=== PATIENT | male | born 1950 | race Caucasian/White ===

== ENCOUNTER → 2018-05-07 | Outpatient (CLI) | payer OTHER ==
[~2018-05-07] MED LIST: DIATRIZOATE MEGL/DIATRIZOA SOD 30 ML BTL PO ONE; IOPAMIDOL 370 MG/ML 200 ML INFUS..BTL INJ ONE; SODIUM CHLORIDE 0.9% 250ML 250 ML ONE; SODIUM CHLORIDE 0.9% 500ML 500 ML ONE; SODIUM CHLORIDE 0.9% 50ML 50 ML ONE
[2018-05-07 17:10] LABS: CREATININE, SERUM 1.51 mg/dL (0.72-1.25)
--- NOTE | 2018-05-07 18:52 | Diagnostic Imaging Report ---
EXAMINATION: CT of the abdomen and pelvis with contrast. TECHNIQUE: Spiral CT images of the abdomen and pelvis were performed from the lung bases to the lesser trochanters after the intravenous administration of 100 cc of Isovue 370 and the oral administration of dilute Gastrografin. Coronal and sagittal reformatted images were obtained. COMPARISON: None. CLINICAL HISTORY:Lower quadrant abdominal pain DISCUSSION: ABDOMEN/PELVIS: LOWER THORAX:5 mm calcified granuloma in the right lower lobe (series 2, image 16). 5 mm calcified granuloma in the right middle lobe (series 2, image 7). 5 mm calcified granuloma in the medial lingula (series 2, image 2). 5-6 mm calcified granuloma in the left lower lobe (series 2, image 11). Calcified para esophageal lymph nodes. HEPATOBILIARY: Normal hepatic contour. Scattered punctate calcified granulomata in both hepatic lobes. No focal hepatic lesions. No intra or extrahepatic biliary ductal dilation. GALLBLADDER: No radio-opaque stones or sludge. No wall thickening. SPLEEN: No splenomegaly. Multiple calcified granulomata PANCREAS: No focal masses or ductal dilatation. ADRENALS: No adrenal nodules. KIDNEYS/URETERS: Punctate nonobstructing calculi in the superior to mid right kidney (series 2, images 35 and 36). No other renal or any ureteral calculi, hydronephrosis or obstruction. Symmetrical renal enhancement. No cystic or solid enhancing lesions. PELVIC ORGANS/BLADDER: Bladder is unremarkable. Dystrophic calcifications in the prostate. PERITONEUM/RETROPERITONEUM: No free air or fluid. LYMPH NODES: No intra-abdominal, retroperitoneal, pelvic or inguinal lymphadenopathy. VESSELS: The celiac trunk,superior and inferior mesenteric and bilateral renal arteries are patent The portal, superior mesenteric and splenic veins are patent. Atherosclerotic calcification of the abdominal aorta and proximal iliac vessels. GI TRACT: Distal descending and sigmoid diverticulosis. Approximately 6 cm segment of the proximal sigmoid colon which shows moderate wall thickening and moderate surrounding inflammatory changes (series 2, image 76 and coronal image 15).. No foci of extraluminal air or adjacent well-defined enhancing fluid collections. Rest of the bowel shows no dilation or obstruction. Stomach is unremarkable. BONES AND SOFT TISSUE: No aggressive lytic lesions. Degenerative disc changes in the lower thoracic and lumbar sacral spine, predominantly L5-S1. No soft tissue abnormalities. IMPRESSION: 1. Findings consistent with acute sigmoid diverticulitis in the appropriate clinical setting. No evidence of perforation or adjacent abscess formation. No bowel obstruction. 2. Prior granulomatous disease. 3. Findings discussed with Dr. Araiza May 07, 2018 at 1842 hours Signed by: Dr. Kian Arias M.D. on 05/07/2018 6:49 PM
== END ==
LOC: CT 15:57
PROVIDERS: ATTEND Internal Medicine Gastroenterology
DX: R10.32 Left lower quadrant pain (principal)
CPT/HCPCS: 36415; 74177; 82565; 84520; J7040; J7050; Q9967

== ENCOUNTER 2020-01-06 12:45 | Observation (INO) | payer OTHER ==
[~2020-01-06] VITALS: Ht 175.3 cm; Wt 99.8 kg
--- OUTSIDE RECORDS SUMMARY | 2020-01-06 12:48 | XMS REPORT ---
Author Author [facility] Organization [facility] Address Unknown Phone Unavailable Care Team Providers Care Tablet Coater Name Role Phone YOLI ARAIZA Unavailable Unavailable Problems This patient has no known problems. Allergies, Adverse Reactions, Alerts This patient has no known allergies or adverse reactions. Medications This patient has no known medications. Results Test Description Test Time Test Comments Text Results Atomic Results Result Comments CT ABDOMEN/PELVIS W 2018-05-07 18:39:00 [place] [address] Patient Name: PANKAJ RONDON J MR #: [id number] : 1950 Age/Sex: 67/M Req #: [id number] Adm Physician: Ordered by: YOLI ARAIZA MD Report #: [id number] Location: CT Room/Bed: Procedure: [id number] CT/CT ABDOMEN/PELVIS W Exam Date: Exam Time: REPORT STATUS: Signed EXAMINATION: CT of the abdomen and pelvis with contrast. TECHNIQUE: Spiral CT images of the abdomen and pelvis were performed from the lung bases to the lesser trochanters after the intravenous administration of 100 cc of Isovue 370 and the oral administration of dilute Gastrografin. Coronal and sagittal reformatted images were obtained. COMPARISON: None. CLINICAL HISTORY:Lower quadrant abdominal pain DISCUSSION: ABDOMEN/PELVIS: LOWER THORAX:5 mm calcified granuloma in the right lower lobe (series 2, image 16). 5 mm calcified granuloma in the right middle lobe (series 2, image 7). 5 mm calcified granuloma in the medial lingula (series 2, image 2). 5-6 mm calcified granuloma in the left lower lobe (series 2, image 11). Calcified para esophageal lymph nodes. HEPATOBILIARY: Normal hepatic contour. Scattered punctate calcified granulomata in both hepatic lobes. No focal hepatic lesions. No intra or extrahepatic biliary ductal dilation. GALLBLADDER: No radio-opaque stones or sludge. No wall thickening. SPLEEN: No splenomegaly. Multiple calcified granulomata PANCREAS: No focal masses or ductal dilatation. ADRENALS: No adrenal nodules. KIDNEYS/URETERS: Punctate nonobstructing calculi in the superior to mid right kidney (series 2, images 35 and 36). No other renal or any ureteral calculi, hydronephrosis or obstruction. Symmetrical renal enhancement. No cystic or solid enhancing lesions. PELVIC ORGANS/BLADDER: Bladder is unremarkable. Dystrophic calcifications in the prostate. PERITONEUM/RETROPERITONEUM: No free air or fluid. LYMPH NODES: No intra-abdominal, retroperitoneal, pelvic or inguinal lymphadenopathy. VESSELS: The celiac trunk,superior and inferior mesenteric and bilateral renal arteries are patent The portal, superior mesenteric and splenic veins are patent. Atherosclerotic calcification of the abdominal aorta and proximal iliac vessels. GI TRACT: Distal descending and sigmoid diverticulosis. Approximately 6 cm segment of the proximal sigmoid colon which shows moderate wall thickening and moderate surrounding inflammatory changes (series 2, image 76 and coronal image 15).. No foci of extraluminal air or adjacent well-defined enhancing fluid collections. Rest of the bowel shows no dilation or obstruction. Stomach is unremarkable. BONES AND SOFT TISSUE: No aggressive lytic lesions. Degenerative disc changes in the lower thoracic and lumbar sacral spine, predominantly L5-S1. No soft tissue abnormalities. IMPRESSION: 1. Findings consistent with acute sigmoid diverticulitis in the appropriate clinical setting. No evidence of perforation or adjacent abscess formation. No bowel obstruction. 2. Prior granulomatous disease. 3. Findings discussed with Dr. Araiza May 07, 2018 at 1842 hours Signed by: Dr. Dusty Arias M.D. on 05/07/2018 6:49 PM Dictated By: DUSTY ARIAS MD 48 Transcribed By: NAZANIN on 05/07/181848 COPY TO: YOLI ARAIZA MD
[2020-01-06] MEDS ORDERED: PANTOPRAZOLE 40 MG 10ML VIAL IV STA (12:54)
[2020-01-06] MEDS ORDERED: SODIUM CHLORIDE 0.9% 1000ML 1,000 ML IV SCH (14:15)
[2020-01-06 14:23] LABS: BASOPHILS # (AUTO) 0.1 (0.0-0.1); BASOPHILS % 1.1 % (0.0-1.0); EOSINOPHILS # (AUTO) 0.3 (0.0-0.4); EOSINOPHILS % 4.4 % (0.0-6.0); HEMATOCRIT 44.5 % (38.2-49.6); HEMOGLOBIN 14.6 g/dL (14.0-18.0); LYMPHOCYTES # (AUTO) 1.3 (1.0-3.2); LYMPHOCYTES % 17.8 % (18.0-39.1); MEAN CORPUSCULAR HEMOGLOBIN 29.9 pg (28-32); MEAN CORPUSCULAR HGB CONC 32.8 g/dL (31-35); MEAN CORPUSCULAR VOLUME 91.2 fL (81-99); MONOCYTES # (AUTO) 0.6 (0.2-0.8); MONOCYTES % 8.3 % (4.4-11.3); NEUTROPHILS % 67.9 % (38.7-80.0); PLATELET COUNT 250 x10e3/uL (140-360); RED BLOOD COUNT 4.88 x10e6/uL (4.3-5.7); RED CELL DISTRIBUTION WIDTH 12.7 % (11.7-14.4)
[2020-01-06 14:42] LABS: ALBUMIN 3.8 g/dL (3.5-5.0); ALBUMIN/GLOBULIN RATIO 1.5 (0.8-2.0); ANION GAP 11.3 mmol/L (8-16); CALCIUM 9.5 mg/dL (8.4-10.2); CREATININE, SERUM 1.23 mg/dL (0.72-1.25); POTASSIUM 4.3 mmol/L (3.5-5.1)
[2020-01-06 14:52] LABS: CREATINE KINASE MB 5.7 ng/mL (0-5.0)
--- NOTE | 2020-01-06 14:59 | NUR ---
RECEIVED REPORT FROM ER FOR PT GOING TO ROOM 202.
[2020-01-06 15:20] VITALS: BP 132/88
[2020-01-06 15:20] LABS: INR 1.03; PROTHROMBIN TIME 14.1 seconds (11.9-14.5)
[2020-01-06 15:21] LABS: PARTIAL THROMBOPLASTIN TIME 29.7 seconds (23.8-35.5)
--- NOTE | 2020-01-06 15:33 | Diagnostic Imaging Report ---
X-ray chest AP portable History: Lower GI bleed Findings: Central airways unremarkable. Heart size borderline normal. Aorta atherosclerotic. Calcified left AP window lymph node. No pleural effusion. No pneumothorax. Lung underwood are unremarkable for a tiny calcified granuloma in the left midlung zone. Visualized skeletal structures show degenerative changes. Upper abdomen unremarkable. Impression: No acute cardiopulmonary disease. Signed by: Louie Oliva MD on 01/06/2020 3:29 PM
[2020-01-06] MEDS ORDERED: PRAVACHOL40 MG PO (15:42)
[2020-01-06] MEDS ORDERED: DEXILANT60 MG PO (15:42)
[2020-01-06] MEDS ORDERED: coq10 PO (15:42)
[2020-01-06] MEDS ORDERED: ARIMIDEX1 MG PO (15:42)
[2020-01-06] MEDS ORDERED: ASPIRIN81 MG PO (15:42)
[2020-01-06] MEDS ORDERED: MULTAQ 400MG T400 MG PO (15:42)
[2020-01-06] MEDS ORDERED: MULTIVITAMINS1 EAC7 PO (15:42)
[2020-01-06] MEDS ORDERED: VITAMIN B-121000 MC1 PO (15:42)
[2020-01-06] MEDS ORDERED: LEVOTHYROXINE112 MCG PO (15:42)
[2020-01-06] MEDS ORDERED: ZOLPIDEM PO (15:42)
[2020-01-06] MEDS ORDERED: XARELTO20 MG PO (15:42)
[2020-01-06] MEDS ORDERED: REVATIO20 MG PO (15:42)
[2020-01-06] MEDS ORDERED: LINZESS290 MCG PO (15:42)
[2020-01-06] MEDS ORDERED: vitamin d3 PO (15:42)
[2020-01-06] MEDS ORDERED: LISINOPRIL-HCT1 EACH PO (15:42)
[2020-01-06 15:57] VITALS: BP 135/83
[2020-01-06 16:15] VITALS: BP 135/83
[2020-01-06 18:47] LABS: BASOPHILS # (AUTO) 0.1 (0.0-0.1); BASOPHILS % 0.9 % (0.0-1.0); EOSINOPHILS # (AUTO) 0.3 (0.0-0.4); EOSINOPHILS % 4.4 % (0.0-6.0); HEMATOCRIT 44.5 % (38.2-49.6); HEMOGLOBIN 14.5 g/dL (14.0-18.0); LYMPHOCYTES # (AUTO) 1.6 (1.0-3.2); MEAN CORPUSCULAR HEMOGLOBIN 29.3 pg (28-32); MEAN CORPUSCULAR HGB CONC 32.6 g/dL (31-35); MEAN CORPUSCULAR VOLUME 89.9 fL (81-99); MONOCYTES # (AUTO) 0.6 (0.2-0.8); MONOCYTES % 8.2 % (4.4-11.3); NEUTROPHILS # (AUTO) 5.1 (2.1-6.9); NEUTROPHILS % 66.1 % (38.7-80.0); PLATELET COUNT 249 x10e3/uL (140-360); RED BLOOD COUNT 4.95 x10e6/uL (4.3-5.7); RED CELL DISTRIBUTION WIDTH 12.9 % (11.7-14.4)
--- NOTE | 2020-01-06 19:45 | NUR ---
BEDSIDE SHIFT REPORT GIVEN TO PM NURSE. PT AWAKE, ALERT, ORIENTED X3, NO SIGNS OF DISTRESS, NO COMPLAINTS AT THIS TIME. ALL SAFETY MEASURES IN PLACE.
[2020-01-06 20:00] VITALS: BP 133/58
[2020-01-06] MEDS: PANTOPRAZOLE 40 MG 10ML VIAL IV SCH (21:43)
[2020-01-06 21:47] VITALS: BP 133/85
[2020-01-07] VITALS: BP 122/64
[2020-01-07 04:00] VITALS: BP 111/59
[2020-01-07 06:22] LABS: BASOPHILS # (AUTO) 0.1 (0.0-0.1); BASOPHILS % 0.9 % (0.0-1.0); EOSINOPHILS # (AUTO) 0.4 (0.0-0.4); EOSINOPHILS % 5.6 % (0.0-6.0); HEMATOCRIT 41.5 % (38.2-49.6); HEMOGLOBIN 13.3 g/dL (14.0-18.0); LYMPHOCYTES # (AUTO) 1.2 (1.0-3.2); LYMPHOCYTES % 17.8 % (18.0-39.1); MEAN CORPUSCULAR HEMOGLOBIN 29.5 pg (28-32); MONOCYTES # (AUTO) 0.6 (0.2-0.8); NEUTROPHILS # (AUTO) 4.4 (2.1-6.9); NEUTROPHILS % 66.1 % (38.7-80.0); PLATELET COUNT 211 x10e3/uL (140-360); RED BLOOD COUNT 4.51 x10e6/uL (4.3-5.7); RED CELL DISTRIBUTION WIDTH 12.7 % (11.7-14.4)
--- NOTE | 2020-01-07 06:36 | NUR ---
patient is resting comfortably in the bed. bed is in the lowest position and call light is within reach.
--- NOTE | 2020-01-07 06:39 | NUR ---
consulted physician has seen patient this morning and states patient is ok to go home from his standpoint if his blood count stays the same.
[2020-01-07 06:47] LABS: CREATINE KINASE MB 2.9 ng/mL (0-5.0)
[2020-01-07 07:22] LABS: ALBUMIN 3.1 g/dL (3.5-5.0); ALBUMIN/GLOBULIN RATIO 1.3 (0.8-2.0); ANION GAP 12.4 mmol/L (8-16); CALCIUM 8.7 mg/dL (8.4-10.2); CREATININE, SERUM 1.24 mg/dL (0.72-1.25); POTASSIUM 4.4 mmol/L (3.5-5.1)
[2020-01-07 08:31] VITALS: BP 125/71
[2020-01-07] MEDS: PANTOPRAZOLE 40 MG 10ML VIAL IV SCH (08:39)
[2020-01-07 09:05] VITALS: BP 125/71
[2020-01-07 11:54] LABS: BASOPHILS # (AUTO) 0.1 (0.0-0.1); BASOPHILS % 1.1 % (0.0-1.0); EOSINOPHILS # (AUTO) 0.3 (0.0-0.4); HEMATOCRIT 42.4 % (38.2-49.6); HEMOGLOBIN 13.8 g/dL (14.0-18.0); LYMPHOCYTES # (AUTO) 1.2 (1.0-3.2); MEAN CORPUSCULAR HEMOGLOBIN 29.2 pg (28-32); MEAN CORPUSCULAR HGB CONC 32.5 g/dL (31-35); MEAN CORPUSCULAR VOLUME 89.6 fL (81-99); MONOCYTES # (AUTO) 0.5 (0.2-0.8); MONOCYTES % 8.4 % (4.4-11.3); NEUTROPHILS # (AUTO) 4.1 (2.1-6.9); PLATELET COUNT 223 x10e3/uL (140-360); RED BLOOD COUNT 4.73 x10e6/uL (4.3-5.7); RED CELL DISTRIBUTION WIDTH 12.7 % (11.7-14.4)
[2020-01-07 12:03] VITALS: BP 138/78
[2020-01-07 16:31] VITALS: BP 118/61
[2020-01-07] MEDS ORDERED: RIVAROXABAN 20 MG TABLET PO SCH (17:00)
[2020-01-07] MEDS ORDERED: SIMVASTATIN 20 MG TAB PO SCH (21:00)
[2020-01-07] MEDS ORDERED: ZOLPIDEM 12.5 MG PO SCH (21:00)
[2020-01-08] MEDS ORDERED: LEVOTHYROXINE SODIUM 112 MCG TAB PO SCH (06:00)
[2020-01-08] MEDS ORDERED: PANTOPRAZOLE SOD 40 MG TABEC PO SCH (07:30)
[2020-01-08] MEDS ORDERED: ASPIRIN 81 MG CHEW TAB PO SCH (09:00)
[2020-01-08] MEDS ORDERED: HYDROCHLOROTHIAZIDE 25 MG TAB PO SCH (09:00)
[2020-01-08] MEDS ORDERED: LINACLOTIDE 145 MCG CAPSULE PO SCH (09:00)
[2020-01-08] MEDS ORDERED: LISINOPRIL 20 MG TAB PO SCH (09:00)
[2020-01-08] MEDS ORDERED: DRONEDARONE 400 MG TAB PO SCH (09:00)
--- NOTE | 2020-01-08 20:47 | Consultation ---
DATE OF CONSULTATION: 01/07/2020 HISTORY OF PRESENT ILLNESS: Mr. Cobos is a gentleman, who is 69 years old, who I have seen him in the office for routine followup colonoscopy. His last colonoscopy was in 2015 and was due for a repeat due to a fair prep. The patient underwent the colonoscopy on December 29, which showed enlarged prostate. He was advised to see his primary care for that, showed also colonoscopy, internal hemorrhoids, moderate diverticulosis of the left colon and three small polyps were removed. Two days prior to his current admission he called the office complaining of passing bright red blood in his stool and was instructed to come to the emergency room and be admitted for observation. Since the time that he admitted to our hospital he has had no bowel movement and no active GI bleeding noted. He remained asymptomatic and his blood count remained stable since admission without any changes. He is known to be on a blood thinner, which has stopped prior to the procedure and has not resumed yet at the time of his admission. Perhaps the history of being on blood thinners contributed to the episode of bleeding and he is on blood thinner for part of management of his atrial fibrillation. CURRENT MEDICATIONS: His outside medications are including Linzess, thyroxine, Zolpidem, aspirin, lisinopril, Dexilant, Xarelto, which was stopped, vitamin D, vitamin B12, cinnamon, and multivitamin. PAST MEDICAL HISTORY: Hypothyroidism, hypertension, hyperlipidemia, acid reflux, insomnia, and atrial fibrillation. PAST SURGICAL HISTORY: Stent inserted in 2004 and inguinal hernia repair in 2018. FAMILY HISTORY: Sister with breast cancer. SOCIAL HISTORY: He still work, has two children. Alcohol he drinks socially and smoking, he does not smoke. ALLERGIES: NEGATIVE. REVIEW OF SYSTEMS: Other than his current complaint of GI bleed is unremarkable. PHYSICAL EXAMINATION: GENERAL: Awake, alert, oriented, hemodynamically stable. NECK: Supple. LUNGS: Clear. HEART: Regularly regular, occasional irregular beat. ABDOMEN: Soft, nontender. No acute sign. No mass. No organomegaly. EXTREMITIES: No edema. IMPRESSION: Episode of GI bleed post colonoscopy. The patient is on blood thinner, currently stable. His blood count has not changed since admission. If continued to be stable through the day we will advance his diet and discharge him home. I instructed him to hold off on blood thinner for now until few more days when this episodes completely resolved. Rukan MD AHMET Araiza /[id number]
--- NOTE | 2020-01-09 09:58 | Discharge Summary ---
ADMISSION DIAGNOSES: Gastrointestinal bleed, rhabdo, acute kidney injury, obesity with a BMI of 32.5, hypertension, atrial fibrillation, and hypothyroidism. DISCHARGE DIAGNOSES: Gastrointestinal bleed, rhabdo, acute kidney injury, obesity with a BMI of 32.5, hypertension, atrial fibrillation, and hypothyroidism. HISTORY: GERD, hypothyroidism, hyperlipidemia, atrial fibrillation, CAD, pulmonary hypertension, hypertension, and insomnia. SURGICAL HISTORY: PCI in 2003 and left great toe bunionectomy. FAMILY HISTORY: Noncontributory. SOCIAL HISTORY: Occasional alcohol use. HOSPITAL COURSE: 69-year-old male admits with complaints of bright red blood per rectum on Thursday and dark stool on . He had a colonoscopy with polyp removal on the previous Thursday. Due to the blood, GI told him to come to the ER. On admission, the hemoglobin was 14.6. Overnight, the hemoglobin only dropped to 13. GI was consulted. CK on admission was 202, it resolved after IV fluid. Chest x-ray was unremarkable. Due to a stable hemoglobin and with a known history of polyp removal and recent colonoscopy, the patient will discharge home and follow up with primary care in 1 to 2 weeks. The patient understands discharge instructions and agrees to plan. Vital signs stable, patient is afebrile. Dictated by Tameka Martin NP MD ASIYA Mccormick/LUISL /[id number]
== END 2020-01-07 16:40 | disposition home or self-care (01) ==
LOC: ER 12:45 → ERHOLD 14:03 → MED/SURG2 15:03
PROVIDERS: ADMIT Internal Medicine; ATTEND Internal Medicine
DX: K92.2 Gastrointestinal hemorrhage, unspecified (principal); M62.82 Rhabdomyolysis; N17.9 Acute kidney failure, unspecified; E66.9 Obesity, unspecified; Z68.32 Body mass index [BMI] 32.0-32.9, adult; I48.91 Unspecified atrial fibrillation; Z79.01 Long term (current) use of anticoagulants; E03.9 Hypothyroidism, unspecified; I25.10 Atherosclerotic heart disease of native coronary artery without angina pectoris; I27.20 Pulmonary hypertension, unspecified; G47.00 Insomnia, unspecified
CPT/HCPCS: 36415 ×2; 71045; 80053 ×2; 82550 ×2; 82553 ×2; 84484 ×2; 85025 ×2; 85610; 85730; 86850; 86900; 87635; 93005; 99284; C9113 ×2; G0378 ×2; J7030